=== PATIENT | male | born 1955 | race Caucasian/White ===

== ENCOUNTER 2020-05-14 23:45 | Emergency (ER) | payer MEDICARE ==
[~2020-05-14] VITALS: Ht 177.8 cm; Wt 83.2 kg
[2020-05-14 23:48] VITALS: BP 114/60; Ht 177.8 cm; Wt 83.2 kg
[2020-05-15 01:19] LABS: CALC OSMOLALITY 283 mosm/kg (275-300); CALCIUM 8.9 mg/dL (8.5-10.1); CARBON DIOXIDE 28.3 mmol/L (21.0-32.0); CHLORIDE - SERUM 107 mmol/L (98-107); CREATININE - SERUM 0.9 mg/dL (0.6-1.3); GLUCOSE 92 mg/dL (74-106); POTASSIUM - SERUM 3.9 mmol/L (3.5-5.1); SODIUM 142 mmol/L (136-145); UREA NITROGEN 16 mg/dL (7-18); eGFR NON AFRICAN AMERICAN > 90 mL/min (90-120)
[2020-05-15 01:25] LABS: BASOPHILS 0.4 % (0-2); EOSINOPHILS 3.7 % (0-7); HEMATOCRIT 30.6 % (42.0-54.0); IMMATURE GRANULOCYTES 0.3 % (0-5); LYMPHOCYTE ABS# 3.95 10x3/uL (1.32-3.57); LYMPHOCYTES 54.3 % (15-50); MCH 26.2 pg (26.0-34.0); MCHC 32.7 g/dL (31.0-37.0); MCV 80.1 fL (80.0-100.0); MEAN PLATELET VOLUME 8.7 fL (7.4-10.4); MONOCYTES 14.3 % (2-11); NEUTROPHIL ABS# 1.97 10x3/uL (1.78-5.38); RBC 3.82 10x6/uL (4.20-6.10); RDW 18.3 % (11.5-14.5); WBC 7.3 10x3/uL (4.8-10.8)
[2020-05-15 01:33] LABS: PLATELET COUNT 360 10x3/uL (130-400)
[2020-05-15 01:37] LABS: ALBUMIN 3.3 g/dL (3.4-5.0); ALKALINE PHOSPHATASE 84 U/L (30-120); ALT (SGPT) 39 U/L (10-68); BILIRUBIN - TOTAL 0.14 mg/dL (0.2-1.3); CKMB 1.8 U/L (0.0-3.6); CREATINE KINASE 174 UL (21-232); PROTEIN - SERUM 6.7 g/dL (6.4-8.2); THYROID STIMULATING HORMONE 2.93 uIU/mL (0.36-3.74)
[2020-05-15 01:41] LABS: TROPONIN-I < 0.017 ng/mL (0.000-0.060)
[2020-05-15 01:43] LABS: INR 1.4 (0.85-1.17); PROTIME 15.9 SECONDS (11.6-15.0)
== END 2020-05-15 03:47 | disposition home or self-care (01) ==
LOC: D.ER 23:45
PROVIDERS: Family Medicine
DX: S01.81XA Laceration without foreign body of other part of head, initial encounter (principal); F03.90 Unspecified dementia, unspecified severity, without behavioral disturbance, psychotic disturbance, mood disturbance, and anxiety; R00.1 Bradycardia, unspecified; I10 Essential (primary) hypertension; W01.10XA Fall on same level from slipping, tripping and stumbling with subsequent striking against unspecified object, initial encounter; Y93.9 Activity, unspecified; Y92.129 Unspecified place in nursing home as the place of occurrence of the external cause